=== PATIENT | female | born 2000 | race African-American/Black ===

== ENCOUNTER 2019-03-10 21:24 | Emergency (ER) | payer OTHER ==
[~2019-03-10] VITALS: Ht 152.4 cm; Wt 68.0 kg
[2019-03-10 21:30] VITALS: BP 122/74; TEMP 97.8
== END 2019-03-10 22:41 | disposition home or self-care (01) ==
LOC: ED 21:24
DX: A63.0 Anogenital (venereal) warts (principal)
CPT/HCPCS: 81000; 81025; 87088; 99283

== ENCOUNTER 2019-06-19 18:02 | Emergency (ER) | payer OTHER ==
[~2019-06-19] VITALS: Ht 162.6 cm; Wt 69.9 kg
[2019-06-19 18:11] VITALS: BP 110/71; TEMP 98.7
== END 2019-06-19 20:04 | disposition home or self-care (01) ==
LOC: ED 18:02
DX: R05 Cough (principal); R50.9 Fever, unspecified
CPT/HCPCS: 99281

== ENCOUNTER 2019-08-29 15:13 | Emergency (ER) | payer OTHER ==
[~2019-08-29] VITALS: Ht 152.4 cm; Wt 68.0 kg
[2019-08-29 15:24] VITALS: TEMP 98
[2019-08-29 17:00] VITALS: BP 118/66
== END 2019-08-29 17:00 | disposition home or self-care (01) ==
LOC: ED 15:13
DX: Z32.01 Encounter for pregnancy test, result positive (principal)
CPT/HCPCS: 81000; 81025; 99283